=== PATIENT | male | born 1960 | race Caucasian/White ===

== ENCOUNTER 2017-12-08 13:08 | Observation (INO) ==
--- NOTE | 2017-12-08 13:43 | General Surg History&Physical ---
<Lynne De La Vega - Last Filed: 12/08/17 13:59> Date of Encounter: 12/08/17 Time of Encounter: 13:37 Assessment and Plan (1) Abdominal pain Current Visit: Yes Status: Acute The assessment and plan as outlined above was discussed with the patient and/or family members who expressed understanding and agreement. All questions were answered. S/P laparoscopic cholecystectomy and primary pair of umbilical hernia on [address] Simmons. RUQ pain, arthur colored stool, and diarrhea Plan: NPO MRCP serial abdominal exams serial labs to include amylase, lipase, bilirubin, CBC, BMP, and hepatitis screening GI and DVT prophylaxis Stool panel if he has diarrhea PRN antiemetics further recommendations pending Qualifiers: Abdominal location: right upper quadrant Qualified Code(s): R10.11 - Right upper quadrant pain (2) Elevated LFTs Current Visit: Yes Status: Acute The assessment and plan as outlined above was discussed with the patient and/or family members who expressed understanding and agreement. All questions were answered. Alk Phos 10/22/2107 152U/L 12/07/2017 337U/L 12/08/2017 369U/L AST 10/22/2017 24U/L 12/07/2017 286 U/L 12/08/2017 206U/L ALT 10/22/2017 32U/L 12/07/2017 352U/L 12/08/2017 336U/L See A/P above (3) HTN (hypertension), benign Current Visit: Yes Status: Chronic The assessment and plan as outlined above was discussed with the patient and/or family members who expressed understanding and agreement. All questions were answered. Controlled. Continue home medications when taking po.o. PRN IV hydralazine History of Present Illness Chief complaint: Arthur colored stool, elevated LFTs, diarrhea HPI: Mr. Beavers is a 57 year old male with a past medical history of hypertension, hyperlipidemia, Gilda's, Gerd, kidney stones, anxiety and depression. He has a surgical history of pilonidal cyst, kidney stone lithiotrispy, colonoscopy 2011, and recent laproscopic cholecystectomy. He denies smoking, drugs, or ETOH history. He reports that for the 1st approximate 4 to 5 days after his cholecystectomy he felt well. He reports that 3 days ago he began having multiple episodes of arthur colored diarrhea that has since progressed to dark almost black stool. He reports multiple episodes daily however he has not had a bowel movement today because he took Imodium. He also reports abdominal pain in the right upper quadrant and a weight loss of 15 pounds. He denies fever, chills, headaches, dizziness, weakness, syncope, or near syncope. He reports feelings of generalized fatigue. He denies drainage from his surgical sites. He is unsure if he has ever had any hepatitis screening. He reports his last colonoscopy was in 2011 and was unremarkable. He states he has been adherent to his medication regimens and that he regularly sees his PCP. Mr. Beavers called into the office to notify Dr. Simmons of his symptoms and he was recommended to complete LFTs which were notably elevated. His LFTs were repeated today, they were slightly improved but remained elevated at this time. He has been admitted for further evaluation and treatment of above. Past Med Surg Social Fam HX - Past Medical History Source: patient, old records reviewed Medical history: GERD, hyperlipidemia, hypertension, kidney stones Psychiatric history: anxiety, depression - Past Surgical History Surgical History: cholecystectomy (11/2017), other (lithotripsy) - Social History Smoking Status: Never smoker Smokeless Tobacco Status: No Alcohol use: none Drug use: none Occupational status: employed Current living situation: Home - Independent Activity Level: Independent ambulation Recent Out of Country Travel Within the Last 8 Weeks: No Exposure or Possible Exposure to Illness During Travel: No Medications and Allergies Ondansetron HCl [Zofran] 4 mg PO Q6H #20 tablet 02/27/16 [Rx] Atorvastatin Calcium [Lipitor] 20 mg PO DAILY 11/27/17 [History] Celecoxib [Celebrex] 200 mg PO DAILY 11/27/17 [History] Citalopram Hydrobromide [Citalopram HBr] 40 mg PO DAILY 11/27/17 [History] Losartan Potassium [Cozaar] 50 mg PO DAILY 11/27/17 [History] OxyCODONE/APAP 5/325 [Percocet 5/325 MG] 1 each PO Q4HR PRN #30 tablet 11/27/17 [Rx] Potassium Citrate [Urocit-K] 20 mg PO BID 11/27/17 [History] Zolpidem [Ambien] 10 mg PO HS PRN 11/27/17 [History] Cholestyramine 4 gm PO BIDAC #60 powd.pack 12/08/17 [Rx] Pantoprazole [Protonix] 40 mg IVP DAILY vial 12/08/17 [Rx] 3 Allergy/AdvReac Type Severity Reaction Status Date / Time lisinopril AdvReac Itching Verified 11/27/17 09:25 Review of Systems All systems PM: reviewed and no additional remarkable complaints except as stated All systems PM: A 10-system review of systems was performed and is negative for pertinent findings except as documented above in the HPI. General Surgery Exam - General physical appearance well developed, well nourished, no distress - Eyes normal ocular movement, icteric - ENT atraumatic, normocephalic - Neck trachea midline, no venous distension - Respiratory normal expansion, normal respiratory effort, clear to auscultation - Cardiovascular Cardiovascular exam: Present: RRR, murmurs - Abdomen Abdomen general surgery: Present: bowel sounds present, soft, tender Abdominal Tenderness: Present: RUQ Hernia: Present: none - Incision Incision: Present: clean and dry, intact - Integumentary Integumentary general surgery: Present: warm and dry, no abnormal pigmentation - Neurologic Present: CN 2-12 grossly intact, normal coordination, normal sensation - Musculoskeletal Present: normal gait, normal posture - Psychiatric Psychiatric general surgery: Present: A&Ox3, appropriate, oriented to person, oriented to place, oriented to time, speech is normal, memory intact Results - Labs All other labs normal. <Molly Simmons - Last Filed: 12/08/17 20:04> Date of Encounter: 12/08/17 Assessment and Plan (1) Food intolerance Current Visit: Yes Status: Acute The assessment and plan as outlined above was discussed with the patient and/or family members who expressed understanding and agreement. All questions were answered. (2) Abdominal pain Current Visit: Yes Status: Acute The assessment and plan as outlined above was discussed with the patient and/or family members who expressed understanding and agreement. All questions were answered. Qualifiers: Abdominal location: right upper quadrant Qualified Code(s): R10.11 - Right upper quadrant pain (3) Elevated LFTs Current Visit: Yes Status: Acute The assessment and plan as outlined above was discussed with the patient and/or family members who expressed understanding and agreement. All questions were answered. (4) HTN (hypertension), benign Current Visit: Yes Status: Chronic The assessment and plan as outlined above was discussed with the patient and/or family members who expressed understanding and agreement. All questions were answered. (5) Diarrhea Current Visit: Yes Status: Acute The assessment and plan as outlined above was discussed with the patient and/or family members who expressed understanding and agreement. All questions were answered. will start cholestyramine Qualifiers: Diarrhea type: due to malabsorption Qualified Code(s): K90.9 - Intestinal malabsorption, unspecified; R19.7 - Diarrhea, unspecified; R19.7 - Diarrhea, unspecified History of Present Illness HPI: Mr. Beavers is a 57 year old male Review of Systems All systems PM: reviewed and no additional remarkable complaints except as stated All systems PM: A 10-system review of systems was performed and is negative for pertinent findings except as documented above in the HPI. General Surgery Exam Initial Vital Signs Temp Pulse Resp BP Pulse Ox 98.5 F 76 15 117/86 96 12/08/17 15:31 12/08/17 15:31 12/08/17 15:31 12/08/17 15:31 12/08/17 15:31 - General physical appearance well developed, well nourished, no distress - Eyes PERRL, normal ocular movement - ENT normal mucosa, normocephalic - Neck trachea midline - Respiratory normal expansion, clear to auscultation - Cardiovascular Cardiovascular exam: Present: RRR - Abdomen Abdomen general surgery: Present: bowel sounds present, soft, tender - Incision Incision: Present: clean and dry, intact - Integumentary Integumentary general surgery: Present: warm and dry, no abnormal pigmentation - Neurologic Present: CN 2-12 grossly intact, normal sensation - Musculoskeletal Present: normal posture - Psychiatric Psychiatric general surgery: Present: A&Ox3, speech is normal Results - Labs 12/08/17 14:02 12/08/17 14:02 Abnormal lab results MPV 9.0 fL (9.4-12.4) L 12/08/17 14:02 BUN 32 mg/dL (6-20) H 12/08/17 14:02 BUN/Creatinine Ratio 29 (6-26) H 12/08/17 14:02 Diabetes panel 12/08/17 Range/Units 14:02 Sodium 138 (136-145) mEq/L Potassium 4.5 (3.5-5.1) mEq/L Chloride 103 (98-107) mEq/L Carbon Dioxide 29 (23-29) mEq/L BUN 32 H (6-20) mg/dL Creatinine 1.12 (0.70-1.30) mg/dL Glucose 102 (70-105) mg/dL Calcium 9.3 (8.6-10.3) mg/dL Calcium panel 12/08/17 Range/Units 14:02 Calcium 9.3 (8.6-10.3) mg/dL Pituitary panel 12/08/17 Range/Units 14:02 Sodium 138 (136-145) mEq/L Potassium 4.5 (3.5-5.1) mEq/L Chloride 103 (98-107) mEq/L Carbon Dioxide 29 (23-29) mEq/L BUN 32 H (6-20) mg/dL Creatinine 1.12 (0.70-1.30) mg/dL Glucose 102 (70-105) mg/dL Calcium 9.3 (8.6-10.3) mg/dL Adrenal panel 12/08/17 Range/Units 14:02 Sodium 138 (136-145) mEq/L Potassium 4.5 (3.5-5.1) mEq/L Chloride 103 (98-107) mEq/L Carbon Dioxide 29 (23-29) mEq/L BUN 32 H (6-20) mg/dL Creatinine 1.12 (0.70-1.30) mg/dL Glucose 102 (70-105) mg/dL Calcium 9.3 (8.6-10.3) mg/dL All other labs normal. - Imaging Additional studies: mrcp results reviewed, images reviewed - Attending Attestation I have personally performed a face to face evaluation on this patient. I have reviewed and agree with the care plan. History and Exam by me shows:
[2017-12-08] MEDS ORDERED: Ondansetron 4 MG/2 ML VIAL IVP PRN (13:44)
[2017-12-08] MEDS ORDERED: *HR* Promethazine 25 MG/ML VIAL IVP PRN (13:44)
[2017-12-08] MEDS ORDERED: *HR* Morphine 2 MG/ML SYRINGE IVP PRN (13:44)
[2017-12-08] MEDS ORDERED: 0.9 % Sodium Chloride 1,000 ML IVC SCH ×2 (13:45→18:08)
[2017-12-08 14:11] LABS: Basophils % 0.5 %; Eosinophils # 0.1 K/mcL (0.0-0.6); Eosinophils % 1.2 %; Hematocrit 45.1 % (37.5-50.1); Hemoglobin 14.8 g/dL (12.9-16.9); Immature Granulocytes % 0.4 % (0-4); Lymphocytes # 1.4 K/mcL (0.6-4.6); Mean Corpuscular HGB Conc 32.8 g/dL (31.6-35.5); Mean Corpuscular Hemoglobin 31.3 pg (28.0-33.3); Mean Corpuscular Volume 95.3 fL (83.0-100.0); Monocytes # 0.6 K/mcL (0.0-1.3); Monocytes % 9.8 %; Neutrophils # 3.6 K/mcL (1.6-8.9); Platelet Count 299 K/mcL (140-400); Red Blood Count 4.73 M/mcL (4.19-5.50); Red Cell Distribution Width 12.5 % (11.5-14.5); Segmented Neutrophils % 63.1 %
[2017-12-08 14:44] LABS: Amylase 46 Units/L (29-103); BUN/Creatinine Ratio 29 (6-26); Blood Urea Nitrogen 32 mg/dL (6-20); Calcium 9.3 mg/dL (8.6-10.3); Carbon Dioxide 29 mEq/L (23-29); Chloride 103 mEq/L (98-107); Glucose 102 mg/dL (70-105); Osmolality,Calculated 293 (280-300); Potassium 4.5 mEq/L (3.5-5.1); Sodium 138 mEq/L (136-145); eGFR For African Americans > 60 (> 60); eGFR For Non-African Americans > 60 (> 60)
[2017-12-08 14:53] LABS: Hepatitis A Antibody IgM Nonreactive (Nonreactive); Hepatitis B Core IgM Nonreactive (Nonreactive); Hepatitis B Surface Antigen Nonreactive (Nonreactive); Hepatitis C Virus Antibody Nonreactive (Nonreactive)
[2017-12-08] MEDS ORDERED: Cholestyramine 4 GM POWD.PACK PO SCH (18:00)
--- NOTE | 2017-12-08 18:03 | Discharge Summary ---
Date of Encounter: 12/08/17 Time of Encounter: 18:00 - Discharge Diagnosis (1) Food intolerance Priority: Secondary Status: Acute (2) Abdominal pain Priority: Primary Status: Acute Qualifiers: Abdominal location: right upper quadrant Qualified Code(s): R10.11 - Right upper quadrant pain (3) Elevated LFTs Priority: Secondary Status: Acute (4) HTN (hypertension), benign Priority: Secondary Status: Chronic (5) Diarrhea Priority: Secondary Status: Acute Qualifiers: Diarrhea type: due to malabsorption Qualified Code(s): K90.9 - Intestinal malabsorption, unspecified; R19.7 - Diarrhea, unspecified; R19.7 - Diarrhea, unspecified - Discharge Medications Prescriptions: Cholestyramine 4 gm PO BIDAC #60 powd.pack Home Medications: Ondansetron HCl [Zofran] 4 mg PO Q6H #20 tablet 02/27/16 [Rx] Atorvastatin Calcium [Lipitor] 20 mg PO DAILY 11/27/17 [History] Celecoxib [Celebrex] 200 mg PO DAILY 11/27/17 [History] Citalopram Hydrobromide [Citalopram HBr] 40 mg PO DAILY 11/27/17 [History] Losartan Potassium [Cozaar] 50 mg PO DAILY 11/27/17 [History] OxyCODONE/APAP 5/325 [Percocet 5/325 MG] 1 each PO Q4HR PRN #30 tablet 11/27/17 [Rx] Potassium Citrate [Urocit-K] 20 mg PO BID 11/27/17 [History] Zolpidem [Ambien] 10 mg PO HS PRN 11/27/17 [History] Cholestyramine 4 gm PO BIDAC #60 powd.pack 12/08/17 [Rx] Pantoprazole [Protonix] 40 mg IVP DAILY vial 12/08/17 [Rx] Allergies/Adverse Reactions: 3 Allergy/AdvReac Type Severity Reaction Status Date / Time lisinopril AdvReac Itching Verified 11/27/17 09:25 General Surgery Exam Initial Vital Signs Temp Pulse Resp BP Pulse Ox 98.5 F 76 15 117/86 96 12/08/17 15:31 12/08/17 15:31 12/08/17 15:31 12/08/17 15:31 12/08/17 15:31 - General physical appearance well developed, well nourished, no distress - Eyes PERRL, normal ocular movement - ENT normal mucosa, normocephalic - Neck trachea midline - Respiratory normal expansion, normal respiratory effort - Cardiovascular Cardiovascular exam: Present: RRR - Abdomen Abdomen general surgery: Present: bowel sounds present, soft, non tender. Absent: distended - Incision Incision: Present: clean and dry, intact - Integumentary Integumentary general surgery: Present: warm and dry, no abnormal pigmentation - Neurologic Present: CN 2-12 grossly intact - Musculoskeletal Present: normal gait, normal posture - Psychiatric Psychiatric general surgery: Present: A&Ox3, speech is normal Date of admission: 12/08/17 13:17 Primary care physician: José Miguel Howard, Discharging clinician: Molly Simmons Anticipated date of discharge: 12/08/17 - Patient Status Disposition: Home, Self-Care Condition: Fair Functional capacity at discharge: independent ambulation Overall status at discharge: patient is progressing back to baseline - Discharge Instructions Follow Up With: José Miguel Howard DO [Primary Care Provider] - Molly Simmons MD [Partnered Physician] - 12/18/17 (call monday for appt change) - Diet and Activity Activity: increase activity as tolerated Diet: advance to your usual diet - Hospital Course Hospital course: Mr. Beavers is a 57 year old male post op laparoscopic cholecystectomy. He is still complaining of abdominal pain/discomfort, intolerance to food/bloating, diarrhea. He was admitted after outpatient labs showed elevated lfts. MRCP was done showing no fluid in gallbladder fossa, no duct dilation and no cbd stone. Patient was started on diet to see if he could tolerate. Started on cholestyramine for diarrhea control. Time spent discussing smoking cessation with patient: 3 to 10 minutes - Time Spent with Patient Total time spent providing and/or coordinating discharge services: Procedures and tests throughout hospitalization: MRCP Labs on day of discharge: Labs from last 24 hours 12/08/17 12/08/17 12/08/17 14:02 14:02 14:02 WBC RBC Hgb Hct MCV MCH MCHC RDW Plt Count MPV Immature Gran % Seg Neutrophils % Lymphocytes % Monocytes % Eosinophils % Basophils % Neutrophils # Lymphocytes # Monocytes # Eosinophils # Basophils # Sodium 138 Potassium 4.5 Chloride 103 Carbon Dioxide 29 BUN 32 H Creatinine 1.12 Est GFR ( Amer) > 60 Est GFR (Non-Af Amer) > 60 BUN/Creatinine Ratio 29 H Glucose 102 Calculated Osmolality 293 Calcium 9.3 Amylase 46 Lipase 40 Hepatitis A IgM Ab Nonreactive Hep Bs Antigen Nonreactive Hep B Core IgM Ab Nonreactive Hepatitis C Ab Screen Nonreactive 12/08/17 14:02 WBC 5.7 RBC 4.73 Hgb 14.8 Hct 45.1 MCV 95.3 MCH 31.3 MCHC 32.8 RDW 12.5 Plt Count 299 MPV 9.0 L Immature Gran % 0.4 Seg Neutrophils % 63.1 Lymphocytes % 25.0 Monocytes % 9.8 Eosinophils % 1.2 Basophils % 0.5 Neutrophils # 3.6 Lymphocytes # 1.4 Monocytes # 0.6 Eosinophils # 0.1 Basophils # 0.0 Sodium Potassium Chloride Carbon Dioxide BUN Creatinine Est GFR ( Amer) Est GFR (Non-Af Amer) BUN/Creatinine Ratio Glucose Calculated Osmolality Calcium Amylase Lipase Hepatitis A IgM Ab Hep Bs Antigen Hep B Core IgM Ab Hepatitis C Ab Screen - Impressions ITS Impressions Abdomen MRI 12/08/17 13:44 IMPRESSION: No biliary ductal dilatation or evidence for choledocholithiasis. D/ / Jamie Chacon MD / Jamie Chacon MD Interpreting Provider: Jamie Chacon MD
[2017-12-08] MEDS ORDERED: Simethicone 80 MG TAB.CHEW PO PRN (18:07)
[2017-12-08 19:38] VITALS: BP 121/81
[2017-12-09] MEDS ORDERED: Pantoprazole 40 MG VIAL IVP SCH (09:00)
== END 2017-12-08 21:44 | disposition home or self-care (01) ==
LOC: 3ANU
PROVIDERS: ADMIT Surgery; ATTEND Surgery